=== PATIENT | male | born 1955 | race Caucasian/White ===

== ENCOUNTER 2018-04-09 08:37 | Inpatient (IN) | payer OTHER ==
[~2018-04-09] VITALS: Ht 185.4 cm; Wt 109.3 kg
[2018-04-09] MEDS ORDERED: ASPIRIN 81 MG CHEW TAB PO ONE (12:00)
[2018-04-09 18:42] VITALS: BP 142/84
[2018-04-09 19:30] VITALS: BP 148/90
[2018-04-09] MEDS ORDERED: HEPARIN 25,000 UNIT/D5W 250ML 250 ML IV SCH (19:30)
[2018-04-09] MEDS ORDERED: HEPARIN SOD (PORCINE) 1000 UNIT/ML SDV IV ONE (19:30)
[2018-04-09 19:40] LABS: CREATINE KINASE MB 10.5 ng/mL (0-5.0)
[2018-04-09] MEDS ORDERED: ATORVASTATIN CA10 MG PO (21:08)
[2018-04-09] MEDS ORDERED: EFFIENT10 MG PO (21:48)
[2018-04-10] VITALS (13 sets, daily range): BP systolic 126–148; BP diastolic 75–98
[2018-04-10 04:12] LABS: BASOPHILS % 0.3 % (0.0-1.0); EOSINOPHILS # (AUTO) 0.2 (0.0-0.4); EOSINOPHILS % 1.1 % (0.0-6.0); HEMATOCRIT 38.6 % (38.2-49.6); HEMOGLOBIN 13.2 g/dL (14.0-18.0); LYMPHOCYTES % 35.1 % (18.0-39.1); MEAN CORPUSCULAR HEMOGLOBIN 29.2 pg (28-32); MEAN CORPUSCULAR HGB CONC 34.2 g/dL (31-35); MEAN CORPUSCULAR VOLUME 85.4 fL (81-99); MONOCYTES # (AUTO) 1.3 (0.2-0.8); NEUTROPHILS # (AUTO) 7.7 (2.1-6.9); NEUTROPHILS % 54.1 % (38.7-80.0); PLATELET COUNT 259 x10e3/uL (140-360); RED BLOOD COUNT 4.52 x10e6/uL (4.3-5.7); RED CELL DISTRIBUTION WIDTH 13.9 % (11.7-14.4)
[2018-04-10 04:26] LABS: ANION GAP 12.7 mmol/L (8-16); BLOOD UREA NITROGEN 13 mg/dL (7-26); BUN/CREATININE RATIO 15 (6-25); CALCIUM 9.2 mg/dL (8.4-10.2); CARBON DIOXIDE 21 mmol/L (22-29); CHLORIDE 110 mmol/L (98-107); CHOL/HDL RATIO 3.7 (3.9-4.7); CHOLESTEROL 146 MD/DL (0-199); CREATININE, SERUM 0.84 mg/dL (0.72-1.25); EST GLOMERULAR FILTRATION RATE > 60 ML/MIN (60-); GLUCOSE 98 mg/dL (74-118); HDL CHOLESTEROL 39 MG/DL (40-60); LDL CHOLESTEROL 88 MG/DL (60-130); POTASSIUM 3.7 mmol/L (3.5-5.1); SODIUM 140 mmol/L (136-145); TRIGLYCERIDES 97 MG/DL (0-149)
[2018-04-10 04:34] LABS: CREATINE KINASE MB 13.9 ng/mL (0-5.0)
[2018-04-10 10:34] LABS: CREATINE KINASE MB 12.3 ng/mL (0-5.0)
[2018-04-10] MEDS: ACETAMINOPHEN 325 MG TAB PO PRN (14:22)
--- NOTE | 2018-04-10 14:47 | History and Physical ---
CHIEF COMPLAINT: Chest pain and lightheadedness. HPI: Mr. Mckeon is a 62-year-old male who presented to the [facility] ER with a complaint of chest pain and lightheadedness. Patient reports that his blood pressure was high and he is not on any antihypertensive medication. He has a previous history of heart attack and has a stent placed in 2013. He is a lifelong nonsmoker and drinks socially. His first troponin was 0.08 in the emergency room and 2nd was 0.5; so, he was admitted and cardiology was consulted. CK-MB was 2.7 as well. Patient is denying any complaints of chest pain or dizziness now. REVIEW OF SYSTEMS GENERAL: Denies any fever or chills. HEAD: Denies any head trauma. ENT: Denies any earache or nosebleed. CVS: Denies any chest pain. RESPIRATORY: Denies any shortness of breath. GI: Denies any nausea or vomiting. The rest of the review of systems is negative except as in HPI. PAST MEDICAL HISTORY: Coronary artery disease and hyperlipidemia. PAST SURGICAL HISTORY: None. FAMILY AND SOCIAL HISTORY: He does not smoke, does not drink. 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 He lives with his and children. PHYSICAL EXAM VITAL SIGNS: Temperature 98.1, pulse of 80, blood pressure 148/90, respiratory rate of 18, and O2 sat 99% on room air. SKIN: Warm and dry. HEENT: Head atraumatic and normocephalic. Pupils are reactive. NECK: Supple. CHEST: Clear to auscultation bilaterally. HEART: S1, S2 audible. ABDOMEN: Soft, nontender, and nondistended. EXTREMITIES: No clubbing, cyanosis, or edema. NEUROLOGIC: Awake and alert. LABS: The 3rd troponin is 1.445 and CK-MB is 10.50. EKG is not showing any ST elevation. ASSESSMENT: Mr. Mckeon is a 62-year-old male with non-ST elevation myocardial infarction and history of coronary artery disease. Current problems are 1. Non-ST elevation myocardial infarction. 2. History of coronary artery disease. PLAN: Patient has been started on heparin by cardiology, has received aspirin. I will resume home medications, atorvastatin. We will check labs in a.m. Further management per cardiology. Discussed with patient and in detail at the bedside. Job#: [id number] CF
--- NOTE | 2018-04-10 14:52 | Consultation ---
DATE OF CONSULTATION: April 10, 2018 CARDIOLOGY CONSULTATION REQUESTING PHYSICIAN: Dr. Rolle REASON FOR CONSULTATION: Elevated troponin. HISTORY OF PRESENT ILLNESS: This is a 62-year-old man with a history of coronary artery disease status post PCI in 2013 who presents with complaint of lightheadedness. The patient states he was in his usual state of health until yesterday morning. When he got out of the shower, he had an episode of lightheadedness. He checked his blood pressure and noted it was elevated at 150/90. He, therefore, presented to the ER for further evaluation. He denied any chest pain, shortness of breath, palpitations, edema, orthopnea or PND. The labs were notable for an elevated troponin for which the patient was admitted to the hospital for further evaluation. REVIEW OF SYSTEMS: Negative, except as per HPI. PAST MEDICAL HISTORY: Coronary artery disease, status post PCI in 2013. PAST SURGICAL HISTORY: Tonsillectomy. ALLERGIES: NO KNOWN DRUG ALLERGIES. MEDICATIONS: Please see medication list. SOCIAL HISTORY: Denies tobacco, alcohol, or illicit drugs. FAMILY HISTORY: Noncontributory. PHYSICAL EXAMINATION VITAL SIGNS: Temperature 98.7 degrees, pulse 89, respiratory rate 18, blood pressure 144/88, oxygen saturation 98% on room air. GENERAL: Well-developed, well-nourished man in no acute distress. HEENT: Normocephalic and atraumatic. Pupils are equal. No scleral icterus. NECK: Supple. No thyromegaly or cervical lymphadenopathy. No carotid bruit. LUNGS: Clear to auscultation bilaterally. No wheezes or crackles. CARDIOVASCULAR: Normal rate, regular rhythm. No murmur. Normal S1 and S2. ABDOMEN: Soft. Nontender. EXTREMITIES: No edema. NEURO: Nonfocal exam. LABS: WBC 14.2, hemoglobin 13.2, hematocrit 38.6, platelets 259. Sodium 140, potassium 3.7, chloride 110, CO2 21, BUN 13, creatinine 0.84. Troponin was 1.971. CK-MB 13.9. Cholesterol 146, LDL 88, HDL 39, triglycerides 97. INR 54.7. IMPRESSION 1. [id number] myocardial infarction. 2. Lightheadedness. 3. History of coronary artery disease, status post percutaneous coronary intervention. RECOMMENDATIONS: Continue heparin drip. Continue patient on aspirin and atorvastatin. Patient is n.p.o. Plan for cardiac catheterization later today. Job#: [id number] MH
[2018-04-10] MEDS ORDERED: HEPARIN SOD/SOD CHLORIDE 2,000 ML ONE (18:15)
[2018-04-10] MEDS ORDERED: LIDOCAINE HCL 2% LOCAL 20 ML VIAL ONE (18:15)
[2018-04-10] MEDS ORDERED: IOPAMIDOL 370 MG/ML 200 ML INFUS..BTL INJ ONE (18:16)
[2018-04-10] MEDS ORDERED: FENTANYL CITRATE/PF 100MCG/2 ML INJ ONE (18:25)
[2018-04-10] MEDS ORDERED: SODIUM CHLORIDE 0.9% 1000ML 1,000 ML ONE (18:25)
[2018-04-10] MEDS ORDERED: MIDAZOLAM HCL 2 MG/2 ML VIAL ONE (18:25)
[2018-04-10] MEDS ORDERED: ATROPINE SULFATE 0.1 MG/ML 10ML SYR ONE (18:57)
[2018-04-10] MEDS ORDERED: HEPARIN SOD (PORCINE) 1000 UNIT/ML 30ML ONE (18:58)
[2018-04-10] MEDS ORDERED: NITROGLYCERIN/D5W 200 MCG/ML 250 ML ONE (18:58)
[2018-04-10] MEDS ORDERED: SODIUM CHLORIDE 0.9% 500ML 500 ML ONE (18:59)
[2018-04-10] MEDS ORDERED: ADENOSINE 6MG/2ML 1 ML ONE (18:59)
[2018-04-10] MEDS ORDERED: TICAGRELOR 90 MG TABLET PO ONE (19:30)
[2018-04-10] MEDS ORDERED: ATORVASTATIN 10 MG TAB PO SCH ×2 (21:00)
[2018-04-10] MEDS ORDERED: ATORVASTATIN 40 MG TAB PO SCH (21:00)
--- NOTE | 2018-04-10 21:21 | Operative Report ---
DATE OF PROCEDURE: April 10, 2018 REFERRING PHYSICIAN: Dr. Nikki Rolle PROCEDURES PERFORMED: 1. Left heart catheterization. 2. Selective coronary angiography. 3. Right coronary artery drug-eluting stent percutaneous coronary intervention. 4. Right common femoral artery 6-[place] Angio-Seal closure. PROCEDURE COMPLICATIONS: None. ESTIMATED BLOOD LOSS: Less than 15 mL. PROCEDURE SUMMARY: After consent was obtained, patient was prepped and draped in a sterile fashion and the right femoral site was locally infiltrated with 2% lidocaine. Access was obtained using micropuncture kit, and a 6-[place] sheath was placed. JL4 and JR4 6-[place] catheters were used for selective engagement of left main and the right coronary artery respectively. The JR4 was also used to cross the aortic valve for hemodynamic measurements and ventriculography. The following findings were observed: 1. Left main with 20% distal stenosis, gives an LAD and a circumflex, and is large in caliber. 2. The LAD has luminal irregularities, gives first small septal campus director and a small to medium-caliber diagonal, and in apical portion it bifurcates into a septal branch and a diagonal branch prior to the apical segment of LV myocardium. 3. The circumflex has ostial 30% stenosis and it gives 3 obtuse marginals, each with luminal irregularities. 4. 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 This was considered to be the target lesion. Distal RCA has a patent stent with less than 10% residual stenosis. Terminal branches RPDA and RPLV have luminal irregularities. 5. RCA was intervened and the target lesion JR4 no side holes guide catheter was used for engagement of right coronary artery, a Runthrough wire to cross the lesion positioned in the distal RPDA. Of note, heparin to maintain an ACT over 250, aspirin and Brilinta were administered. Pre-dilatation with a 2.5 x 8 [place] [employer] Emerge balloon was performed 12 to 20 atmospheres across the target lesion. This was followed by a 2.75 x 20 [place] Synergy drug-eluting stent deployed with an overlapping 3.0 x 12 [place] Synergy stent, inflations at 18 atmospheres to 20 atmospheres, and the overlap was again postdilated with 3.0 balloon to 18 atmospheres. Final angiography reveals NIDA-3 flow, 0% residual stenosis, no dissection and no perforation. 6. LV pressure was 141/2 with end-diastolic pressure of 20. 7. Aortic pressure was 140/75. 8. LV gram with low-normal left ventricular systolic function, left ventricular ejection fraction of 50% to 55%, and segmental akinesis of the mid to distal inferior segments of LV myocardium. CONCLUSION: 1. Proximal right coronary artery drug-eluting stent percutaneous coronary intervention. 2. Patent old distal right coronary artery stent. 3. Left ventriculogram revealing ventricular ejection fraction of 50% to 55% with akinesis of the mid to apical inferior segments of left ventricular myocardium. RECOMMENDATIONS: 1. Aspirin 81 mg daily. 2. Brilinta 90 mg q.12h. 3. Add beta-josi. 4. Add statin. 5. Intensify lifestyle modification and risk factor management. Job#: [id number]
[2018-04-10] MEDS: HYDROCODONE/APAP 5MG-325MG TAB PO PRN (21:30)
[2018-04-10] MEDS: METOPROLOL SUCCINATE 25 MG TAB XL PO SCH (22:40)
[2018-04-11] MEDS: SODIUM CHLORIDE 0.9% 1000ML 1,000 ML IV SCH ×2 (00:46→09:45)
[2018-04-11 00:56] VITALS: BP 131/74
[2018-04-11 01:49] VITALS: BP 137/81
[2018-04-11] MEDS: ACETAMINOPHEN 325 MG TAB PO PRN (02:28)
[2018-04-11 04:35] VITALS: BP 142/88
[2018-04-11] MEDS: HYDROCODONE/APAP 5MG-325MG TAB PO PRN (04:56)
[2018-04-11 06:12] LABS: BASOPHILS % 0.2 % (0.0-1.0); EOSINOPHILS % 0.3 % (0.0-6.0); HEMATOCRIT 37.7 % (38.2-49.6); HEMOGLOBIN 12.9 g/dL (14.0-18.0); LYMPHOCYTES # (AUTO) 4.3 (1.0-3.2); MEAN CORPUSCULAR HEMOGLOBIN 29.3 pg (28-32); MEAN CORPUSCULAR HGB CONC 34.2 g/dL (31-35); MEAN CORPUSCULAR VOLUME 85.7 fL (81-99); MONOCYTES # (AUTO) 1.5 (0.2-0.8); MONOCYTES % 11.1 % (4.4-11.3); NEUTROPHILS # (AUTO) 7.2 (2.1-6.9); PLATELET COUNT 237 x10e3/uL (140-360); RED CELL DISTRIBUTION WIDTH 13.9 % (11.7-14.4)
[2018-04-11 06:35] LABS: ANION GAP 12.8 mmol/L (8-16); BLOOD UREA NITROGEN 12 mg/dL (7-26); BUN/CREATININE RATIO 15 (6-25); CALCIUM 9.1 mg/dL (8.4-10.2); CARBON DIOXIDE 20 mmol/L (22-29); CHLORIDE 111 mmol/L (98-107); EST GLOMERULAR FILTRATION RATE > 60 ML/MIN (60-); GLUCOSE 92 mg/dL (74-118); POTASSIUM 3.8 mmol/L (3.5-5.1); SODIUM 140 mmol/L (136-145)
[2018-04-11 07:35] VITALS: BP 129/87
[2018-04-11] MEDS ORDERED: ASPIRIN 81 MG CHEW TAB PO SCH (09:00)
[2018-04-11] MEDS ORDERED: TICAGRELOR 90 MG TABLET PO SCH ×2 (09:00→17:00)
[2018-04-11] MEDS ORDERED: ASPIRIN 325 MG TAB PO SCH (09:00)
[2018-04-11] MEDS: METOPROLOL SUCCINATE 25 MG TAB XL PO SCH (09:40)
[2018-04-11 12:16] VITALS: BP 119/77
[2018-04-11] MEDS ORDERED: ATORVASTATIN CA20 MG PO (13:20)
[2018-04-11] MEDS ORDERED: BRILINTA90 MG PO (13:20)
[2018-04-11] MEDS ORDERED: METOPROLOL SUCC25 MG PO (13:21)
--- NOTE | 2018-04-11 14:09 | Progress Note ---
DATE: April 11, 2018 CARDIOLOGY PROGRESS NOTE SUBJECTIVE: Patient denies chest pain or shortness of breath. He underwent cardiac catheterization yesterday, which revealed a 99% ulcerated and aneurysmal stenosis in the right coronary artery for which he had drug-eluting stent placement. Overnight, he had oozing from his right groin site; however, hemostasis was subsequently achieved. OBJECTIVE VITAL SIGNS: Temperature 99.1 degrees, pulse 84, respiratory rate 19, blood pressure 119/77, oxygen saturation 96% on room air. GENERAL: Awake, alert, in no acute distress. LUNGS: Clear to auscultation bilaterally. No wheezes or crackles. CARDIOVASCULAR: Normal rate, regular rhythm. No murmur. Normal S1 and S2. ABDOMEN: Soft. Nontender. EXTREMITIES: No edema. RIGHT GROIN: Without hematoma or bruit. LABS: WBC 13.11, hemoglobin 12.9, hematocrit 37.7, platelets 237. Sodium 140, potassium 3.8, chloride 111, CO2 20, BUN 12, creatinine 0.8. TELEMETRY: Normal sinus rhythm. IMPRESSION 1. Yei-ZS-cedqkessg myocardial infarction. 2. Coronary artery disease with prior right coronary artery stent. 3. Lightheadedness. RECOMMENDATIONS: Patient's symptoms have improved. Continue dual-antiplatelet therapy, specifically aspirin and ticagrelor. Prasugrel is stopped at this time. Continue beta josi and statin therapy. Activity restrictions were discussed with the patient. He may return to work with light duty after 1 week. Please have the patient follow up with us in the office in 2 weeks. Job#: [id number]
--- NOTE | 2018-04-12 10:38 | Discharge Summary ---
FINAL DIAGNOSES 1. Coronary artery disease, status post percutaneous coronary intervention. 2. Obesity. 3. Fld-FE-auedxpbyo myocardial infarction. ADMISSION HISTORY AND HOSPITAL COURSE: Mr. Mckeon is a 62-year-old male who was admitted with chest pain and lightheadedness. Troponins were high. Cardiology was consulted. The patient underwent PCI by Dr. Terry. A right coronary artery drug-eluting stent was placed. The patient was started on antiplatelet agent. He was doing well. Hemoglobin remained stable. He will be discharged home to follow up with cardiology and follow up with his primary care physician. Cardiology cleared the patient for discharge. CHARLIE BLACKMON MD Job#: [id number] RI
== END 2018-04-11 13:39 | disposition home or self-care (01) | DRG 247 ==
LOC: FSED 08:37 → EDBEDREQSVC 15:08 → IMCU 17:44
PROVIDERS: ADMIT Internal Medicine; ATTEND Internal Medicine
PROC: 027035Z Dilation of Coronary Artery, One Artery with Two Drug-eluting Intraluminal Devices, Percutaneous Approach (ICD-10-PCS; principal; 2018-04-10)
PROC: 4A023N7 Measurement of Cardiac Sampling and Pressure, Left Heart, Percutaneous Approach (ICD-10-PCS; 2018-04-10)
PROC: B2111ZZ Fluoroscopy of Multiple Coronary Arteries using Low Osmolar Contrast (ICD-10-PCS; 2018-04-10)
PROC: B2151ZZ Fluoroscopy of Left Heart using Low Osmolar Contrast (ICD-10-PCS; 2018-04-10)
CPT/HCPCS: 36140; 36415; 71045; 77002; 80048; 80053; 80061; 81003; 82550; 82553; 84484; 85025; 85730; 92920; 93005; 93306; 93458; 99284; C9600; J0153; J1644; J2001; J2250; J7030; J7040; Q9967